=== PATIENT | female | born 1970 | race Caucasian/White ===

== ENCOUNTER 2020-07-05 08:18 | Emergency (ER) | payer OTHER, SELFPAY ==
[2020-07-05 08:50] VITALS: PULSE 91; RESP 18; TEMP 36.9; O2SAT 97; BMI 40.1
--- NOTE | 2020-07-05 08:58 | XR_ITS ---
EXAMINATION: XR CHEST CLINICAL INFORMATION: Chest pain COMPARISON: Previous chest x-ray June 2011 TECHNIQUE: 2 views of the chest were obtained. FINDINGS: The cardiac and mediastinal contours are normal. The lung volumes are low. The lungs are clear. There is no pleural effusion or pneumothorax. There are degenerative changes of the spine. IMPRESSION: Low lung volumes. No evidence for acute disease in the chest.
--- NOTE | 2020-07-05 08:58 | ECG_ITS ---
Test Reason : CP Blood Pressure : / mmHG Vent. Rate : 103 BPM Atrial Rate : 103 BPM P-R Int : 156 ms QRS Dur : 074 ms QT Int : 344 ms P-R-T Axes : 043 016 049 degrees QTc Int : 450 ms Sinus tachycardia Possible Left atrial enlargement Otherwise normal ECG No previous ECGs available Referred By: Cris Jain Electronically Signed By:CHEY PRO MD
--- NOTE | 2020-07-05 09:33 | ED.CHESTPAIN ---
HPI - Chest Pain General Chief Complaint: Chest Pain Stated Complaint: CHEST PAIN Time Seen by Provider: 07/05/20 08:52 Source: patient Mode of arrival: ambulatory History of Present Illness HPI narrative: 49-year-old female with a past medical history of asthma c/o substernal chest pain since 5:00 a.m. yesterday morning. reports pain constant, worse with lying flat/deep breathing. Reports mild associated SOB. Denies fever, cough, chills, LE edema, history of clots, calf pain, sick contacts MD complaint: chest pain Related Data Home Medications Medication Instructions Recorded Confirmed Symbicort 07/05/20 Trulicity 07/05/20 Zyrtec 07/05/20 atorvastatin 07/05/20 hydrochlorothiazide 07/05/20 metformin 07/05/20 metoprolol tartrate 07/05/20 metoprolol tartrate 07/05/20 montelukast 07/05/20 valsartan 07/05/20 Allergies Allergy/AdvReac Type Severity Reaction Status Date / Time No Known Allergies Allergy Mild NONE Unverified 06/14/20 16:47 Review of Systems Review of Systems: Constitutional: No Weight loss, No Fever, No Chills, No Night Sweats, No Fatigue, No Cardiovascular: + Chest Pain, No SOB, No Dyspnea on Exertion, No Orthopnea, No Edema, No Palpitations Respiratory: No Cough, No Sputum, No Wheezing Gastrointestinal: No Nausea, No Vomiting, No Diarrhea, No Constipation, No abdominal Pain Genitourinary: No Dysuria, No Urinary Frequency, No Hematuria, Skin: No Skin Lesions, No rash Yes all other systems are reviewed and are negative Neurologic: Denies Sensory deficit (Neuro) [facility] Past Medical History Attestation statement: The following information was validated with the patient. Source: unable to obtain Medical History (Updated 07/05/20 @ 11:03 by JESSICA Hector) Asthma Diabetes Eroded bladder suspension mesh Heart palpitations Varicose vein of leg Social History Social History Smoked in Last 30 Days: No Use of substances other than those prescribed or required for medical reasons: No Advance Directives: No Advance Directives Information Provided: No Physical Exam Vital Signs and I&O and Narrative: Vital Signs and I&O: Vital Signs Temp 98.5 F 07/05/20 08:50 Pulse 91 07/05/20 08:50 Resp 18 07/05/20 08:50 Pulse Ox 97 07/05/20 08:50 Intake & Output 07/04/20 07/05/20 07/05/20 18:59 06:59 18:59 Weight 102.965 kg Body Mass Index 40.1 Const: General: cooperative and healthy appearing Orientation/consciousness: patient oriented x3 Limitations: no limitations HENMT: Head: Yes normal to inspection Ears: hearing grossly normal bilaterally General nose exam: Normal external nose present Face and sinus: Yes normal facial exam Eyes: General: appearance normal, both eyes and all related structures EOM: EOMs intact bilaterally Neck: Neck: Yes normal visual inspection Chest: Chest palpation & inspection: normal inspection of the chest and tenderness ( reproducing subjective complaint. No crepitus) sternum Resp: Effort & Inspection: normal respiratory effort and no stridor Auscultation: clear to auscultation bilaterally, no crackles, no rales, no rhonchi and no wheezes Cardio: Rate: regular rate Heart sounds: S1 normal heart sound present and S2 normal heart sound present Peripheral pulses: Peripheral pulses 2+ throughout GI: Inspection: Yes normal to inspection Palpation (GI): Soft to palpation, nontender, no guarding and not rigid Skin: Wounds: no wounds Neuro: General: patient oriented x3 Gait exam (Neuro): Normal gait present Sensory Exam: No Sensory deficit (Neuro) Extrem: Other: no calf tenderness General: Yes normal to inspection Right upper extremity: no edema Course Course Course Narrative: -1053-- labs unremarkable, D-dimer negative, troponin negative CXR with low lung volumes, no acute disease MDM - Chest Pain MDM Narrative Medical decision making narrative: 49-year-old female with a past medical history of asthma c/o substernal chest pain since 5:00 a.m. yesterday morning. reports pain constant, worse with lying flat/deep breathing. On exam VSS, NAD/ well-appearing. Lungs CTA, pain reproducible on palpation of chest wall. Concern for MSK pain vs ACS vs PE vs pneumonia. Low concern for dissection, myocarditis, CHF, or asthma exacerbation Plan: EKG, labs, CXR, reassess Medical Records Data Attestation: I reviewed the patient's medical records. Lab Data Attestation: I reviewed the patient's lab results. Result diagrams: 07/05/20 09:34 07/05/20 09:34 Labs: Lab Results 07/05/20 07/05/20 07/05/20 Range/Units 09:34 09:34 09:34 WBC 7.0 (4.8-10.8) X10*3/uL RBC 4.92 (4.20-5.50) X10*6/uL Hgb 14.2 (12.0-16.0) g/dl Hct 43.0 (37-47) % MCV 87.4 (80-98) fL MCH 28.9 (27.0-33.0) pg MCHC 33.0 (31.0-35.0) g/dl RDW 13.1 (11.0-16.0) % Plt Count 219 (160-400) X10*3/uL MPV 12.3 (9.4-12.3) fL Immature Gran % (Auto) 0.4 (0.0-0.4) % Neut % (Auto) 66.1 (45-73) % Lymph % (Auto) 25.5 (20-40) % [place] % (Auto) 6.5 (2-11) % Eos % (Auto) 1.1 (0-4) % Baso % (Auto) 0.4 (0-2) % Lymph # (Auto) 1.8 (1.2-4.9) X10*3/uL [place] # (Auto) 0.5 (0.1-1.2) X10*3/uL Eos # (Auto) 0.1 (0.0-0.4) X10*3/uL Baso # (Auto) 0.0 (0.0-0.2) X10*3/uL Abs Immat Gran (auto) 0.03 (0.00-0.03) X10*3/uL Absolute Neuts (auto) 4.6 (2.0-8.3) X10*3/uL Absolute Nucleated RBC 0.000 (0.0-0.012) X10*3/uL Nucleated RBC % (auto) 0.0 (0.0-0.2) /100WBC D-Dimer < 200 NG/ML Sodium 137 (135-145) mmol/L Potassium 3.5 (3.3-5.1) mmol/l Chloride 99 (96-108) mmol/L Carbon Dioxide 27 (22-29) mmol/L Anion Gap 15 (12-20) BUN 14 (9-16) mg/dL Creatinine 0.70 (0.5-1.4) mg/dL Estim Creat Clear Calc 112.6 Estimated GFR > 60 Random Glucose 250 H (60-115) mg/dL Calcium 9.0 (8.4-10.2) mg/dL Total Bilirubin 0.3 (0.0-1.0) mg/dL Direct Bilirubin < 0.2 (0.0-0.5) mg/dL AST 21 (5-31) U/L ALT 39 H (0-31) U/L Alkaline Phosphatase 73 (39-117) U/L Troponin I High Sens (<3.5-17.0) ng/L B-Natriuretic Peptide (<100) pg/mL Total Protein 6.9 (6.5-8.0) g/dL Albumin 4.0 (3.5-5.0) g/dL Lipase 53 (8-78) U/L 07/05/20 Range/Units 09:34 WBC (4.8-10.8) X10*3/uL RBC (4.20-5.50) X10*6/uL Hgb (12.0-16.0) g/dl Hct (37-47) % MCV (80-98) fL MCH (27.0-33.0) pg MCHC (31.0-35.0) g/dl RDW (11.0-16.0) % Plt Count (160-400) X10*3/uL MPV (9.4-12.3) fL Immature Gran % (Auto) (0.0-0.4) % Neut % (Auto) (45-73) % Lymph % (Auto) (20-40) % [place] % (Auto) (2-11) % Eos % (Auto) (0-4) % Baso % (Auto) (0-2) % Lymph # (Auto) (1.2-4.9) X10*3/uL [place] # (Auto) (0.1-1.2) X10*3/uL Eos # (Auto) (0.0-0.4) X10*3/uL Baso # (Auto) (0.0-0.2) X10*3/uL Abs Immat Gran (auto) (0.00-0.03) X10*3/uL Absolute Neuts (auto) (2.0-8.3) X10*3/uL Absolute Nucleated RBC (0.0-0.012) X10*3/uL Nucleated RBC % (auto) (0.0-0.2) /100WBC D-Dimer NG/ML Sodium (135-145) mmol/L Potassium (3.3-5.1) mmol/l Chloride (96-108) mmol/L Carbon Dioxide (22-29) mmol/L Anion Gap (12-20) BUN (9-16) mg/dL Creatinine (0.5-1.4) mg/dL Estim Creat Clear Calc Estimated GFR Random Glucose (60-115) mg/dL Calcium (8.4-10.2) mg/dL Total Bilirubin (0.0-1.0) mg/dL Direct Bilirubin (0.0-0.5) mg/dL AST (5-31) U/L ALT (0-31) U/L Alkaline Phosphatase (39-117) U/L Troponin I High Sens < 3.5 (<3.5-17.0) ng/L B-Natriuretic Peptide 13 (<100) pg/mL Total Protein (6.5-8.0) g/dL Albumin (3.5-5.0) g/dL Lipase (8-78) U/L ECG Data ECG #1: Attestation: I personally reviewed and interpreted this ECG as follows: ECG interpretation date: 07/05/20 Interpretation: sinus tachycardia. Rate 103. No ST changes. Scores Additional Scores PERC Score: Score: =1 Discharge Plan Discharge Clinical Impression: Costalchondritis, Atypical chest pain Patient Disposition: Home, Self-Care Instructions: Costochondritis (ED), Chest Wall Pain (ED) Additional Instructions: your blood work and chest x-ray were unremarkable today in the ED Take Tylenol Motrin at home for the pain You need to call your primary care doctor to set up follow-up You should also establish care with a fisheries technician for further outpatient workup If pain persists and or worsens, you have constant worsening chest pain, shortness of breath, fever, chills, productive cough, or worsening swelling in her legs return to the ED Prescriptions: No Action Symbicort RF: 0 Trulicity RF: 0 Zyrtec RF: 0 atorvastatin RF: 0 hydrochlorothiazide RF: 0 metformin RF: 0 metoprolol tartrate RF: 0 metoprolol tartrate RF: 0 montelukast RF: 0 valsartan RF: 0 Referrals: Isreal Acuña MD [Primary Care Provider] - 2 days Lincoln Grullon MD [Physician] - 3 days
[2020-07-05 10:09] LABS: MANUAL DIFF FLAG NO
[2020-07-05 10:13] LABS: Basophils Percent Auto 0.4 % (0-2); Eosinophils Absolute Auto 0.1 X10*3/uL (0.0-0.4); Eosinophils Percent Auto 1.1 % (0-4); Hemoglobin 14.2 g/dl (12.0-16.0); Imm Gran Abs Auto 0.03 X10*3/uL (0.00-0.03); Imm Gran Pct Auto 0.4 % (0.0-0.4); Lymphocytes Absolute Auto 1.8 X10*3/uL (1.2-4.9); Lymphocytes Percent Auto 25.5 % (20-40); Mean Corpuscular Hemoglobin 28.9 pg (27.0-33.0); Mean Corpuscular Volume 87.4 fL (80-98); Mean Platelet Volume 12.3 fL (9.4-12.3); Monocytes Absolute Auto 0.5 X10*3/uL (0.1-1.2); Monocytes Percent Auto 6.5 % (2-11); Neutrophils Absolute Auto 4.6 X10*3/uL (2.0-8.3); Neutrophils Percent Auto 66.1 % (45-73); Platelet Count 219 X10*3/uL (160-400); Red Blood Count 4.92 X10*6/uL (4.20-5.50); Red Cell Distribution Width 13.1 % (11.0-16.0)
[2020-07-05 10:37] LABS: Alanine Aminotransferase 39 U/L (0-31); Alkaline Phosphatase 73 U/L (39-117); Anion Gap 15 (12-20); Aspartate Amino Transferase 21 U/L (5-31); Bilirubin Direct < 0.2 mg/dL (0.0-0.5); Bilirubin Total 0.3 mg/dL (0.0-1.0); Blood Urea Nitrogen 14 mg/dL (9-16); Carbon Dioxide 27 mmol/L (22-29); Chloride 99 mmol/L (96-108); Creatinine Clr Calc Pharmacy 112.6; Estimated Glomerular Filt Rate > 60; Glucose Random 250 mg/dL (60-115); Lipase 53 U/L (8-78); Potassium 3.5 mmol/l (3.3-5.1); Sodium 137 mmol/L (135-145); Total Protein 6.9 g/dL (6.5-8.0)
[2020-07-05 10:43] LABS: D Dimer < 200 NG/ML
[2020-07-05 10:44] LABS: B Type Natriuretic Peptide 13 pg/mL (<100); Troponin-I High Sensitivity < 3.5 ng/L (<3.5-17.0)
[2020-07-05] MEDS: Ketorolac Tromethamine 15 MG/ML VIAL IV (11:01)
[2020-07-05 11:03] VITALS: BP 134/77; PULSE 80; RESP 20; O2SAT 95
[2020-07-05] MEDS: Albuterol/Iprat 2.5/0.5MG 3 ML AMPUL.NEB INHALE (11:34)
== END 2020-07-05 11:55 | disposition home or self-care (01) ==
PROVIDERS: Physician Assistant; Emergency Provider Internal Medicine; PCP Family Medicine
DX: M94.0 Chondrocostal junction syndrome [Tietze] (principal); R07.89 Other chest pain; E11.9 Type 2 diabetes mellitus without complications; J45.909 Unspecified asthma, uncomplicated; Z79.899 Other long term (current) drug therapy; Z79.4 Long term (current) use of insulin
CPT/HCPCS: 36415; 71046; 80048; 80076; 83690; 83880; 84484; 85025; 85379; 93005; 96374; 99284; J1885

== ENCOUNTER 2020-08-01 10:44 | Outpatient (REF) | payer OTHER, SELFPAY ==
[2020-08-01 14:27] LABS: Creatinine Urine 62.62 mg/dL; Microalbum/Creatinine Ratio Ur 12.7 ug/mg cr
== END 2020-08-01 10:45 | disposition home or self-care (01) ==
LOC: HO.WFDLNP 10:44
PROVIDERS: Visit Provider Family Medicine
DX: R03.0 Elevated blood-pressure reading, without diagnosis of hypertension (principal)
CPT/HCPCS: 82043

== ENCOUNTER 2020-08-28 09:36 | Outpatient (REF) | payer OTHER, SELFPAY ==
--- NOTE | 2020-08-28 | MM_ITS ---
EXAMINATION: MM SCREENING DIGITAL BREAST TOMOSYNTHESIS, BILATERAL CLINICAL INFORMATION: Screening. Asymptomatic. The lifetime risk of breast cancer based on the Tyrer-Cuzick Model is 11%. COMPARISON: Mammography: 08/18/2019, 02/24/2018, 12/26/2016, 10/12/2015 TECHNIQUE: Digital breast tomosynthesis is performed in both the craniocaudal and mediolateral oblique views along with computer-aided detection (CAD). Synthesized 2D images are generated from the tomosynthesis. FINDINGS: There are scattered areas of fibroglandular density (ACR BI-RADS breast composition Category b). Parenchymal pattern is similar to prior exams. The left breast shows no interval mass or architectural abnormality. Neither breast shows abnormal calcifications. The axilla and skin contours are unremarkable. The right breast has new smooth circumscribed nodule 6:00-7:00 position 6 cm from nipple measuring approximately 6 x 5 x 4 mm. This may represent a cyst. Patient will be recalled for targeted ultrasound. MM/MM tomosynthesis screening BI IMPRESSION: 1. Right: New smooth circumscribed nodule 6:00-7:00 right breast under 1 cm. 2. Left: No mammographic evidence of malignancy. ASSESSMENT: BI-RADS 0: Incomplete - Need Additional Imaging Evaluation RECOMMENDATION: 1. Targeted ultrasound right breast. 2. Radiology department staff will contact the patient for additional imaging. This patient's information was entered into a reminder system with a target due date for their next mammogram.
== END 2020-08-28 09:37 | disposition home or self-care (01) ==
LOC: HO.MAMMO 09:36
PROVIDERS: PCP Family Medicine; Visit Provider Family Medicine
DX: Z12.31 Encounter for screening mammogram for malignant neoplasm of breast (principal)
CPT/HCPCS: 77063; 77067

== ENCOUNTER → 2020-08-29 07:41 | Outpatient (BNVA) | payer OTHER, SELFPAY | PROVIDERS: PCP Family Medicine; Referring Provider Family Medicine; Visit Provider Internal Medicine Endocrinology, Diabetes & Metabolism | DX: E11.65 Type 2 diabetes mellitus with hyperglycemia (principal); E78.00 Pure hypercholesterolemia, unspecified; I10 Essential (primary) hypertension; E66.01 Morbid (severe) obesity due to excess calories; Z79.899 Other long term (current) drug therapy | CPT/HCPCS: 82947 ==

== ENCOUNTER 2020-08-29 08:54 | Outpatient (REF) | payer OTHER, SELFPAY ==
[2020-08-29 11:30] LABS: Alanine Aminotransferase 49 U/L (0-31); Albumin Level 4.1 g/dL (3.5-5.0); Alkaline Phosphatase 73 U/L (39-117); Anion Gap 16 (12-20); Aspartate Amino Transferase 30 U/L (5-31); Bilirubin Total 0.4 mg/dL (0.0-1.0); Blood Urea Nitrogen 17 mg/dL (9-16); Calcium 9.3 mg/dL (8.4-10.2); Carbon Dioxide 27 mmol/L (22-29); Chloride 100 mmol/L (96-108); Cholesterol 162 mg/dL; Estimated Glomerular Filt Rate > 60; Glucose Fasting 186 mg/dL (60-99); HDL Cholesterol 38 mg/dL; LDL Cholesterol Calculated 90 mg/dl; Potassium 4.3 mmol/l (3.3-5.1); Sodium 139 mmol/L (135-145); Total Protein 7.3 g/dL (6.5-8.0); Triglycerides 170 mg/dL
[2020-08-29 11:39] LABS: Free T4 (Free Thyroxine) 0.85 ng/dL (0.71-1.85); Thyroid Stimulating Hormone 0.84 uIU/mL (0.32-4.0); Vitamin D 25-OH Total 36.6 ng/mL (>30)
[2020-08-29 11:43] LABS: Vitamin B12 535 pg/mL (200-900)
[2020-08-30 18:57] LABS: LDL Cholesterol Direct 101 mg/dL (<100)
== END 2020-08-29 08:55 | disposition home or self-care (01) ==
LOC: HO.10HDL 08:54
PROVIDERS: PCP Family Medicine; Visit Provider Internal Medicine Endocrinology, Diabetes & Metabolism
DX: Z00.00 Encounter for general adult medical examination without abnormal findings (principal); E11.65 Type 2 diabetes mellitus with hyperglycemia
CPT/HCPCS: 80053; 80061; 82306; 82607; 83721; 84439; 84443

== ENCOUNTER 2020-09-04 12:00 | Outpatient (REF) | payer OTHER, SELFPAY ==
--- NOTE | 2020-09-04 12:05 | US_ITS ---
EXAMINATION: US DIAGNOSTIC ULTRASOUND BREAST, RIGHT CLINICAL INFORMATION: Density right breast lower outer quadrant. COMPARISON: Mammography of 08/28/2020 and studies dating back to 12/28/2012. TECHNIQUE: Ultrasound of the breast is performed with real-time schuster scale imaging and color Doppler. FINDINGS: At approximately the 8 o'clock position 3 cm from nipple there is a well-circumscribed hypoechoic lesion with increased through sound transmission and no internal vascularity which is wider than it is tall representing a cyst. There is a thin septation within it. This measures approximately 5 x 4 x 9 mm in size. There is no solid mass, architectural abnormality, duct ectasia, or edema in the soft tissue planes. This corresponds in size and location to the mammographic finding. Results are discussed with the patient at time of visit. US/US breast RT limited IMPRESSION: Radiographic abnormality corresponds to a minimally complex cyst. ASSESSMENT: BI-RADS 2: Benign RECOMMENDATION: Routine annual mammography screening due in 12 months. This patient's information was entered into a reminder system with a target due date for their next mammogram.
== END 2020-09-04 12:01 | disposition home or self-care (01) ==
LOC: HO.MAMMO 12:00
PROVIDERS: PCP Family Medicine; Visit Provider Family Medicine
DX: N63.13 Unspecified lump in the right breast, lower outer quadrant (principal)
CPT/HCPCS: 76642

== ENCOUNTER 2020-11-10 09:57 | Outpatient (REF) | payer OTHER, SELFPAY ==
--- NOTE | ~2020-11-10 | XR_ITS ---
EXAMINATION: XR KNEE, LEFT CLINICAL INFORMATION: Left knee pain COMPARISON: April 17, 2014 TECHNIQUE: AP and lateral views of the left knee. FINDINGS: There is no evidence of acute fracture or dislocation of the left knee. No left knee effusion is seen. Left knee joint spaces are maintained. There is mild spurring undersurface of the patella. XR/XR knee LT 2V IMPRESSION: No acute fracture or effusion of the left knee. Mild patellofemoral degenerative spurring.
== END 2020-11-10 09:58 | disposition home or self-care (01) ==
LOC: HO.XRAY 09:57
PROVIDERS: PCP Family Medicine; Visit Provider Nurse Practitioner Adult Health
DX: M25.562 Pain in left knee (principal)
CPT/HCPCS: 73560

== ENCOUNTER → 2021-03-11 08:55 | Outpatient (BNVA) | payer OTHER, SELFPAY | PROVIDERS: PCP Family Medicine; Visit Provider Internal Medicine Endocrinology, Diabetes & Metabolism ==

== ENCOUNTER 2022-01-10 12:50 | Outpatient (REF) | payer OTHER, SELFPAY ==
--- NOTE | ~2022-01-10 | MM_ITS ---
EXAMINATION: MM SCREENING DIGITAL BREAST TOMOSYNTHESIS, BILATERAL CLINICAL INFORMATION: Screening. Asymptomatic. The lifetime risk of breast cancer based on the Tyrer-Cuzick Model is 11%. COMPARISON: Mammography: 08/28/2020, 08/18/2019, 02/24/2018 TECHNIQUE: Digital breast tomosynthesis is performed in both the craniocaudal and mediolateral oblique views along with computer-aided detection (CAD). Synthesized 2D images are generated from the tomosynthesis. FINDINGS: There are scattered areas of fibroglandular density (ACR BI-RADS breast composition Category b). There are no significant masses, abnormal calcifications, or other abnormalities. There is no developing density or interval architectural abnormality. Parenchymal asymmetry posterior upper outer left breast is stable. The axilla are unremarkable. No significant changes. MM/MM tomosynthesis screening BI IMPRESSION: No mammographic evidence of malignancy. ASSESSMENT: BI-RADS 2: Benign RECOMMENDATION: Routine annual mammography screening. This patient's information was entered into a reminder system with a target due date for their next mammogram.
== END 2022-01-10 12:51 | disposition home or self-care (01) ==
LOC: HO.MAMMO 12:50
PROVIDERS: PCP Family Medicine; Visit Provider Family Medicine
DX: Z12.31 Encounter for screening mammogram for malignant neoplasm of breast (principal)
CPT/HCPCS: 77063; 77067

== ENCOUNTER → 2022-02-13 08:18 | Outpatient (BNVA) | payer OTHER, SELFPAY | PROVIDERS: PCP Family Medicine; Visit Provider Nurse Practitioner Gerontology | DX: E11.65 Type 2 diabetes mellitus with hyperglycemia (principal) ==

== ENCOUNTER 2022-03-06 10:38 | Outpatient (REF) | payer OTHER, SELFPAY ==
[2022-03-06 13:49] LABS: Alanine Aminotransferase 88 U/L (0-31); Albumin Level 4.3 g/dL (3.5-5.0); Alkaline Phosphatase 77 U/L (39-117); Anion Gap 14 (12-20); Aspartate Amino Transferase 47 U/L (5-31); Bilirubin Total 0.4 mg/dL (0.0-1.0); Blood Urea Nitrogen 17 mg/dL (9-16); Calcium 9.6 mg/dL (8.4-10.2); Carbon Dioxide 28 mmol/L (22-29); Chloride 101 mmol/L (96-108); Cholesterol 192 mg/dL; Estimated Glomerular Filt Rate > 60; Glucose Fasting 103 mg/dL (60-99); HDL Cholesterol 49 mg/dL; LDL Cholesterol Calculated 123 mg/dl; Sodium 139 mmol/L (135-145); Total Protein 7.5 g/dL (6.5-8.0); Triglycerides 101 mg/dL
[2022-03-06 13:52] LABS: Estimated Average Glucose 148 mg/dL; Hemoglobin A1c % 6.8 %
[2022-03-06 14:15] LABS: Creatinine Urine 67.12 mg/dL; Microalbum/Creatinine Ratio Ur 13.4 ug/mg cr
[2022-03-08 03:22] LABS: LDL Cholesterol Direct 133 mg/dL (<100)
== END 2022-03-06 10:39 | disposition home or self-care (01) ==
LOC: HO.WFDLDS 10:38
PROVIDERS: Visit Provider Nurse Practitioner Gerontology
DX: E11.65 Type 2 diabetes mellitus with hyperglycemia (principal)
CPT/HCPCS: 36415; 80053; 80061; 82043; 83036; 83721

== ENCOUNTER 2022-05-08 11:30 | Outpatient (REF) | payer OTHER, SELFPAY ==
[2022-05-08 14:10] LABS: Alanine Aminotransferase 143 U/L (0-31); Albumin Level 4.3 g/dL (3.5-5.0); Alkaline Phosphatase 79 U/L (39-117); Anion Gap 15 (12-20); Aspartate Amino Transferase 80 U/L (5-31); Bilirubin Total 0.3 mg/dL (0.0-1.0); Blood Urea Nitrogen 13 mg/dL (9-16); Calcium 9.6 mg/dL (8.4-10.2); Carbon Dioxide 28 mmol/L (22-29); Chloride 100 mmol/L (96-108); Estimated Glomerular Filt Rate > 60; Glucose Random 112 mg/dL (60-115); Potassium 3.8 mmol/L (3.3-5.1); Sodium 139 mmol/L (135-145); Total Protein 7.4 g/dL (6.5-8.0)
[2022-05-09 08:05] LABS: HBS Num1 0.66 mIU/mL (0-7.99); HBc Num1 0.11 S/CO (0.00-0.79); HBsAGNum1 0.18 S/CO (0.00-0.99); Hepatitis B Core Antibody Nonreactive (Nonreactive); Hepatitis B Surface Antigen Negative (Negative); ~HepC Num1 0.21 S/CO (0.00-0.79); ~Hepatitis B Surface Antibody NONREACTIVE (Nonreactive); ~Hepatitis C Antibody Nonreactive (Nonreactive)
== END 2022-05-08 11:31 | disposition home or self-care (01) ==
LOC: HO.WFDLDS 11:30
PROVIDERS: Visit Provider Family Medicine
DX: Z11.3 Encounter for screening for infections with a predominantly sexual mode of transmission (principal); R74.01 Elevation of levels of liver transaminase levels
CPT/HCPCS: 36415; 80053; 86704; 86706; 86803; 87340

== ENCOUNTER 2022-05-21 14:11 | Outpatient (REF) | payer OTHER, SELFPAY ==
--- NOTE | ~2022-05-21 | US_ITS ---
EXAMINATION: US THYROID CLINICAL INFORMATION: Nontoxic goiter, unspecified. COMPARISON: None TECHNIQUE: Linear transducer grayscale and color Doppler examination with attention to the region of the thyroid. FINDINGS: SIZE: Measurements of the thyroid lobes and nodules are given in sagittal, anteroposterior and transverse dimensions respectively. Right Thyroid Lobe: 4.1 x 1.6 x 1.7 cm, volume 5.8 mL. Parenchyma: The gland echotexture is homogeneous. Thyroid vascularity is normal. Left Thyroid Lobe: 4.0 x 1.0 x 1.1 cm, volume 2.2 mL. Parenchyma: The gland echotexture is homogeneous. Thyroid vascularity is normal. Isthmus: 0.1 cm in maximum AP dimension. There are small cysts in the right lobe, largest measuring 4 mm. No focal thyroid nodule is seen. NODES: No lymphadenopathy is seen in the tissue surrounding the thyroid gland. US/US thyroid IMPRESSION: Normal sized thyroid gland. Small cysts in the right lobe. No suspicious nodule.
== END 2022-05-21 14:12 | disposition home or self-care (01) ==
LOC: HO.US 14:11
PROVIDERS: Visit Provider Family Medicine
DX: E04.9 Nontoxic goiter, unspecified (principal)
CPT/HCPCS: 76536

== ENCOUNTER 2022-06-19 10:34 | Outpatient (REF) | payer OTHER, SELFPAY ==
[2022-06-19 14:47] LABS: Gamma Glutamyl Transpeptidase 66 U/L (7-33); Lipase 38 U/L (8-78)
[2022-06-19 15:09] LABS: Ferritin 53 ng/mL (10-250)
[2022-06-20 07:05] LABS: HIV AB/AG Nonreactive (Nonreactive); HIV Num 1 0.07 S/CO (0.00-0.99)
[2022-06-21 11:36] LABS: Alpha 1 Anti-trypsin 151 mg/dL (83-199)
[2022-06-23 13:06] LABS: Smooth Muscle Antibody <20 U (<20)
[2022-06-23 13:53] LABS: Alpha Fetoprotein 2.1 ng/mL
[2022-06-23 14:06] LABS: Anti Nuclear Antibody Screen NEGATIVE (NEGATIVE)
[2022-06-24 13:07] LABS: Mitochondrial Antibodies NEGATIVE (NEGATIVE)
[2022-06-26 15:12] LABS: Transglutaminase Ab IgG <1.0 U/mL; Transglutaminase IgA <1.0 U/mL
== END 2022-06-19 10:35 | disposition home or self-care (01) ==
LOC: HO.WFDLDS 10:34
PROVIDERS: Visit Provider Nurse Practitioner Family
DX: Z11.4 Encounter for screening for human immunodeficiency virus [HIV] (principal); R10.9 Unspecified abdominal pain; R74.8 Abnormal levels of other serum enzymes; R74.01 Elevation of levels of liver transaminase levels; R79.89 Other specified abnormal findings of blood chemistry
CPT/HCPCS: 36415; 82103; 82105; 82728; 82977; 83690; 86015; 86038; 86039; 86255; 86256; 86364; 87389

== ENCOUNTER 2022-06-26 14:54 | Outpatient (REF) | payer OTHER, SELFPAY ==
[2022-06-29 14:39] LABS: H Pylori Breath Test Negative (Negative)
== END 2022-06-26 14:55 | disposition home or self-care (01) ==
LOC: HO.LNP 14:54
PROVIDERS: Visit Provider Nurse Practitioner Family
DX: K21.9 Gastro-esophageal reflux disease without esophagitis (principal)
CPT/HCPCS: 83013

== ENCOUNTER 2022-07-09 08:44 | Outpatient (REF) | payer OTHER, SELFPAY ==
--- NOTE | ~2022-07-09 | US_ITS ---
EXAMINATION: US COMPLETE ABDOMEN WITH LIVER ELASTOGRAPHY CLINICAL INFORMATION: Elevated liver function tests COMPARISON: None. TECHNIQUE: Real-time imaging of the abdominal viscera. Noninvasive ultrasound liver fibrosis assessment is performed using Stephan ElastPQ point quantification shear wave elastography (2D-SWE) with a C5-2 MHz transducer. Multiple elastography samples are obtained. FINDINGS: PANCREAS: Normal. ABDOMINAL AORTA: The proximal, middle, and distal aortic segments are normal in caliber. INFERIOR VENA CAVA: Visualized portions are normal. LIVER: Liver echotexture is previous probably representing fatty infiltration. There is a hypoechoic area adjacent to the gallbladder, a characteristic location of focal fatty sparing. No other focal lesion. Liver is slightly enlarged. The liver contour is normal. No biliary duct dilatation.. The right lobe measures 18.5 cm in length. The left lobe measures 12 cm in length. Portal flow is normal/hepatopedal Shear wave liver elastography median stiffness is 1.8 m/s (reference: normal median stiffness is 1.3 m/s or less). IQR/median stiffness to assess sampling precision is 0.12 (reference: good quality data set is IQR/median stiffness of 0.15 or less). GALLBLADDER: Normal. The gallbladder is physiologically distended without evidence of stones, sludge, polyps, wall thickening or pericholecystic fluid. COMMON BILE DUCT: Normal in caliber measuring 0.4 cm in diameter. RIGHT KIDNEY: Normal. No hydronephrosis. No renal calculi or focal parenchymal lesions. The kidney measures 11 cm in maximum dimension. LEFT KIDNEY: Normal. No hydronephrosis. No renal calculi or focal parenchymal lesions. The kidney measures 10.7 cm in maximum dimension. SPLEEN: Normal. The spleen measures 9.4 cm in maximum dimension. FREE FLUID: None. US/US abdomen comp w elastography IMPRESSION: 1. Impression: Slightly enlarged echogenic liver suggestive of fatty infiltration. 2. Liver elastography: Adequate liver sampling. Increased liver stiffness suggestive of compensated advanced chronic liver disease but need further test for confirmation. REFERENCE: Society of Radiologists in Ultrasound Liver Stiffness Thresholds (2020): LIVER STIFFNESS THRESHOLDS: *Liver Stiffness equal or less than 1.3 m/s: High probability of being normal. *Liver Stiffness less than 1.7 m/s: In the absence of other known clinical signs, rules out compensated advanced chronic liver disease. *Liver Stiffness 1.7-2.1 m/s: Suggestive of compensated advanced chronic liver disease but need further test for confirmation. *Liver Stiffness over 2.1 m/s: Rules in compensated advanced chronic liver disease. *Liver Stiffness over 2.4 m/s: Suggestive of clinically significant portal hypertension. QUALITY OF DATA SET: *IQR/Median value equal or less than 0.15 implies a quality data set. *IQR/Median value over 0.15 implies a poor quality data set. SIGNIFICANT CHANGE FROM PRIOR EXAM: Significant change if liver stiffness measurement is 10% or greater from prior exam. OTHER CONSIDERATIONS: The stage of liver fibrosis may be overestimated in the setting of acute hepatitis, liver inflammation, elevated liver function tests, hepatic vascular congestion, obstructive cholestasis, non-fasting state, and infiltrative diseases such as amyloidosis and lymphoma. In some patients with NAFLD, the liver stiffness thresholds for compensated advanced chronic liver disease may be lower. In causes other than viral hepatitis and NAFLD, liver stiffness thresholds are not well established.
== END 2022-07-09 08:45 | disposition home or self-care (01) ==
LOC: HO.US 08:44
PROVIDERS: Visit Provider Nurse Practitioner Family
DX: R79.89 Other specified abnormal findings of blood chemistry (principal)
CPT/HCPCS: 76705; 76981

== ENCOUNTER 2022-08-13 10:04 | Outpatient (REF) | payer OTHER, SELFPAY | END 2022-08-13 10:05 | disposition home or self-care (01) | LOC: HO.SH 10:04 | PROVIDERS: Visit Provider Family Medicine | DX: Z01.118 Encounter for examination of ears and hearing with other abnormal findings (principal); H93.293 Other abnormal auditory perceptions, bilateral | CPT/HCPCS: 92557; 92567 ==

== ENCOUNTER 2022-08-15 14:11 | Outpatient (REF) | payer OTHER, SELFPAY ==
[2022-08-16 15:02] LABS: BV Int Neg Control Negative (Negative); BV Int Pos Control Positive (Positive)
[2022-08-27 04:57] LABS: HPV mRNA E6/E7 rflx Not Detected (Not Detected)
== END 2022-08-15 14:12 | disposition home or self-care (01) ==
LOC: HO.LNP 14:11
PROVIDERS: Advanced Practice Midwife; Visit Provider Advanced Practice Midwife
DX: Z01.419 Encounter for gynecological examination (general) (routine) without abnormal findings (principal); Z11.51 Encounter for screening for human papillomavirus (HPV)
CPT/HCPCS: 87480; 87510; 87624; 87660; 88142

== ENCOUNTER 2022-11-24 09:27 | Day surgery (SDC) | payer OTHER, SELFPAY ==
[2022-11-20 12:37] VITALS: BMI 38.9
[2022-11-24 10:11] VITALS: BP 138/76; PULSE 70; RESP 18; TEMP 37; O2SAT 97; BMI 40.5
[2022-11-24] MEDS: Lactated Ringers 1,000 ML 50 ML IVCONT (10:27)
[2022-11-24 10:34] LABS: Glucose, Whole Blood 143 mg/dL (60-115)
--- NOTE | 2022-11-24 11:01 | MHC.SHP ---
Pre-Procedural Eval Section A Date of Service: 11/24/22 The patient is an INPATIENT: No The History & Physical has been completed within 30 days and I have reviewed it.: No Section B Chief Complaint: Encounter for screening for malignant neoplasm of Details of Present Illness: GERD, colon cancer screening Relevant Family History (Specify if Yes): Yes Relevant Social History: None Present Medications: see Short Stay Collaborative assessment Medical History: Significant History (Asthma Diabetes Diabetes type 2, uncontrolled Eroded bladder suspension mesh Heart palpitations Morbid obesity Varicose vein of leg) History of Previous Operations: Relevant previous surgery/procedure and date(s) (History of bladder surgery) Allergies: Allergies Allergy/AdvReac Type Severity Reaction Status Date / Time No Known Allergies Allergy Mild NONE Verified 11/20/22 12:27 Review of Systems Sugical H&P ROS: Negative: Constitution, Cardiovascular, Respiratory and Gastrointestinal Exam Surgical H&P Exam: Normal: Heart, Normal: Lungs, Normal: Extremities and Normal: Abdomen Plan Diagnosis/Plan: Unchanged I have reviewed the history and physical and performed a pertinent physical examination on my patient. No changes have occurred unless specified. Time Spent With Patient Time: Total time managing care of this patient today ____ minutes.
--- NOTE | 2022-11-24 11:07 | P.OP_ITS ---
Operative Note Operative Note Date of Service: 11/24/22 Narrative: Pre-op diagnosis: Colon cancer screening, GERD, epigastric pain Post-op diagnosis:?other (Gastritis, Gastric polyps, gastric antral nodule, GERD, colon polyps, diverticulosis, hemorrhoids) Surgeon: William Lerma MD Anesthesia:?MAC FLEXIBLE TRANSORAL UPPER GASTROINTESTINAL ENDOSCOPY WITH BIOPSIES AND COLONOSCOPY TILL CECUM WITH BIOPSIES UPPER ENDOSCOPY Consent: Indications for the procedure and potential complications of bleeding, perforation, reaction to medications and missed diagnosis were discussed with the patient and informed consent was obtained. Instrument: Olympus GIF H 190 mid size upper endoscope Monitoring: Vital signs and clinical assessment, continuous EKG monitoring, Pulse oximetry, Carbon Dioxide monitoring and blood pressure monitoring were done throughout the procedure. Procedure: The patient was placed in the left lateral decubitis position and pre-procedure medications were administered and a bite block was placed. The endoscope was inserted into the mouth and advanced under direct vision to the third part of duodenum. A careful inspection was made as the upper endoscope was withdrawn including a retroflexed examination of the proximal stomach; Findings and interventions are described below. Findings: Larynx: Normal Esophagus: GE junction at 35 cms. No esophagitis or Cabral's. Stomach: Moderate diffuse gastric erythema with nodular appearing gastric mucosa in the gastric body.. Biopsies were obtained from the antrum and body. Multiple 3-5 mm benign appearing polyps in the gastric body - biopsied. A 7 - 8 mm benign appearing nodule in the antrum - biopsied. Grade 2 flap valve on retroflexed examination of the cardia. Duodenum: Normal bulb and descending duodenum Intervention: Biopsies as noted above COLONOSCOPY PROCEDURE NOTE Consent: Indications for the procedure and potential complications of bleeding, perforation, reaction to medications and missed diagnosis were discussed with the patient and informed consent was obtained. Instrument: Olympus PCF H 190 L variable stiffness pediatric colonoscope Monitoring: Vital signs and clinical assessment, intermittent blood pressure monitoring, continuous EKG monitoring, Pulse oximetry and Carbon Dioxide monitoring were done throughout the procedure. Colon withdrawl time was 13 minutes. Procedure: The patient was placed in the left lateral decubitis position and pre-procedure medications were administered. After a digital rectal examination of the ano-rectum, the video colonoscope was inserted into the rectum and advanced through the colon to the ICV. Cecum was visualized across the ICV. The colonoscope was slowly withdrawn in a retrograde panoramic fashion and the colon mucosa was carefully examined including a retroflexed view of the rectum. Findings and interventions are described below. Procedure Difficulty: : LLQ pressure applied to intubate the cecum Findings: Terminal Ileum: Not evaluated Cecum: Normal Ascending Colon: Normal Transverse Colon: Normal Descending Colon: Normal Sigmoid Colon: A few 5 - 7 mm diminutive appearing polyps - one was biopsied. Moderate diverticulosis Rectum: A few 5 - 7 mm diminutive appearing polyps - one was biopsied. Ano-rectum: Moderate internal hemorrhoids Colon preparation: Good Impression and Post Procedure Diagnosis: Endoscopy Findings: STOMACH: Moderate diffuse gastric erythema with nodular appearing gastric mucosa in the gastric body.. Biopsies were obtained from the antrum and body. Multiple 3-5 mm benign appearing polyps in the gastric body - biopsied. A 7 - 8 mm benign appearing nodule in the antrum - biopsied. Colonoscopy Findings: A few 5 - 7 mm diminutive appearing polyps in the recto-sigmoid - two were biopsied. Moderate diverticulosis seen in the sigmoid colon Moderate hemorrhoids on retroflexed exam. Plan: Await pathology results Patient has an appointment on 12/09/22 in the GI Clinic with Shoshana Earl FNP- [place] . Repeat Colonoscopy interval based on path results - in 5 years if polyps are adenomatous and 10 years if polyps are hyperplastic. Above findings were reviewed with the patient and gastric polyps, colon polyps and diverticulosis handouts were given in the discharge area
--- NOTE | 2022-11-24 11:07 | PM.OP ---
Brief Operative Note Date of Service: 11/24/22 Pre-op diagnosis: Colon cancer screening, GERD, epigastric pain Post-op diagnosis: other (Gastritis, Gastric polyps, gastric antral nodule, GERD, colon polyps, diverticulosis, hemorrhoids) Procedure: FLEXIBLE TRANSORAL UPPER GASTROINTESTINAL ENDOSCOPY WITH BIOPSIES AND COLONOSCOPY TILL CECUM WITH BIOPSIES Surgeon: William Lerma MD Anesthesia: MAC Was an Analysis Or Research Safety Inspector used for this Procedure?: No Analysis Or Research Safety Inspector: Maria Guadalupe Duff Estimated blood loss (mL): 0 Pathology: other ( a. gastric antrum r/o h pylori b. gastric antrum nodule c. gastric body d. gastric polyp e. sigmoid polyp f. rectal polyp) Condition: stable Disposition: PACU
[2022-11-24 11:58] VITALS: BP 102/71; PULSE 75; RESP 20; TEMP 36.8; O2SAT 97
[2022-11-24 12:13] VITALS: BP 119/81; PULSE 74; RESP 16; TEMP 36.8; O2SAT 95
== END 2022-11-24 12:38 | disposition home or self-care (01) ==
PROVIDERS: PCP Family Medicine; Visit Provider Internal Medicine Gastroenterology
PROC: (CPT 45380; principal; 2022-11-24 10:30)
DX: Z12.11 Encounter for screening for malignant neoplasm of colon (principal); K63.5 Polyp of colon; K62.1 Rectal polyp; K57.30 Diverticulosis of large intestine without perforation or abscess without bleeding; K64.8 Other hemorrhoids; M79.7 Fibromyalgia; K21.9 Gastro-esophageal reflux disease without esophagitis; K29.50 Unspecified chronic gastritis without bleeding; K31.7 Polyp of stomach and duodenum; J45.909 Unspecified asthma, uncomplicated; E78.00 Pure hypercholesterolemia, unspecified; I83.90 Asymptomatic varicose veins of unspecified lower extremity; E11.9 Type 2 diabetes mellitus without complications; E66.01 Morbid (severe) obesity due to excess calories; Z68.38 Body mass index [BMI] 38.0-38.9, adult; R74.01 Elevation of levels of liver transaminase levels; R00.2 Palpitations; F32.A Depression, unspecified; Z79.51 Long term (current) use of inhaled steroids; Z79.84 Long term (current) use of oral hypoglycemic drugs; Z79.899 Other long term (current) drug therapy
CPT/HCPCS: 45380; 43239; 82947; 88305; 88342; J2250; J3010

== ENCOUNTER 2022-12-23 11:11 | Outpatient (REF) | payer OTHER, SELFPAY ==
[2022-12-23 16:00] LABS: Cholesterol 190 mg/dL; HDL Cholesterol 40 mg/dL; LDL Cholesterol Calculated 108 mg/dl; Lipase 40 U/L (8-78); Triglycerides 211 mg/dL
== END 2022-12-23 11:12 | disposition home or self-care (01) ==
LOC: HO.LAB 11:11
PROVIDERS: PCP Family Medicine; Referring Provider Family Medicine; Visit Provider Nurse Practitioner Family
DX: Z00.00 Encounter for general adult medical examination without abnormal findings (principal); I10 Essential (primary) hypertension; R74.01 Elevation of levels of liver transaminase levels; K21.9 Gastro-esophageal reflux disease without esophagitis; R10.12 Left upper quadrant pain
CPT/HCPCS: 36415; 80061; 83690

== ENCOUNTER 2023-01-07 09:17 | Outpatient (REF) | payer OTHER, SELFPAY ==
[2023-01-07 10:18] LABS: Estimated Average Glucose 180 mg/dL; Hemoglobin A1c % 7.9 %
[2023-01-07 10:54] LABS: Alanine Aminotransferase 90 U/L (0-31); Albumin Level 4.1 g/dL (3.5-5.0); Alkaline Phosphatase 78 U/L (39-117); Aspartate Amino Transferase 53 U/L (5-31); Bilirubin Direct 0.1 mg/dL (0.0-0.5); Bilirubin Total 0.4 mg/dL (0.0-1.0); Total Protein 6.9 g/dL (6.5-8.0)
[2023-01-14 15:28] LABS: FIB-ALT 73 U/L (6-29); FIB-Alpha-2-Macroglobulin 260 mg/dL (106-279); FIB-Apolipoprotein A1 150 mg/dL (101-198); FIB-GGT 61 U/L (3-70); FIB-Haptoglobin 161 mg/dL (43-212); FIB-Total Bilirubin 0.3 mg/dL (0.2-1.2); Liver Fibrosis Score 0.22; Liver Fibrosis Stage F0-F1; Nec Inflam Act Grade A1-A2; Nec Inflam Act Score 0.41
[2023-01-15 22:38] LABS: Pancreatic Elastase-1 >500 mcg/g
== END 2023-01-07 09:18 | disposition home or self-care (01) ==
LOC: HO.LAB 09:17
PROVIDERS: PCP Family Medicine; Visit Provider Nurse Practitioner Family
DX: E11.9 Type 2 diabetes mellitus without complications (principal); R74.8 Abnormal levels of other serum enzymes; R10.9 Unspecified abdominal pain
CPT/HCPCS: 80076; 81596; 82656; 83036

== ENCOUNTER 2023-06-26 09:24 | Outpatient (REF) | payer OTHER, SELFPAY | END 2023-06-26 09:25 | disposition home or self-care (01) | LOC: HO.MAMMO 09:24 | PROVIDERS: PCP Family Medicine; Visit Provider Family Medicine | DX: Z12.31 Encounter for screening mammogram for malignant neoplasm of breast (principal) | CPT/HCPCS: 77063; 77067 ==

== ENCOUNTER → 2023-06-26 09:45 | Outpatient (BNV) | payer OTHER, SELFPAY | PROVIDERS: PCP Family Medicine; Visit Provider Radiology Diagnostic Radiology | DX: Z12.31 Encounter for screening mammogram for malignant neoplasm of breast (principal) | CPT/HCPCS: 77063; 77067 ==

== ENCOUNTER 2023-06-26 10:31 | Outpatient (AMB) | payer OTHER, SELFPAY ==
--- NOTE | 2023-06-26 10:37 | A.OFFVIS_ITS ---
Intake Vital Signs 06/26/23 10:43 Height 5 ft 3 in Weight 215 lb BMI 38.1 BP 143/73 H Blood Pressure Location Lt brachial Position Sitting Pulse 78 Intake Visit Reasons: 6 month f/u labs Intake Note: Patient follow up for Elevated liver transaminase level. Patient cc: acid reflex on and off, denies any other GI issues. Roll Coverer Required: No Accompanied by: Self / Same As Patient Allergies No Known Allergies Allergy (Mild, Verified 06/26/23 10:37) NONE HPI 6 month f/u labs HPI Details LAST VISIT Elevated liver transaminase level Will repeat blood work. Patient was encouraged to lose weight. Change diet. Increase exercise GERD (gastroesophageal reflux disease) Discussed with patient avoiding dietary triggers in late night snacking. Staying upright for minimal 3 hours after meals discussed with patient. Will start patient on pantoprazole and see if she will have improvement in symptoms. Postprandial abdominal pain in left upper quadrant Patient reports postprandial abdominal pain and left upper quadrant. Will check lipase, pancreatic elastase. I will see patient in 6 months, sooner on as needed basis. Patient is agreeable to this plan and verbalizes understanding of instructions. She was given the opportunity to ask questions and all questions answered. ? TODAY'S VISIT: Patient is here today for follow-up and to discuss lab results. Patient says liver enzymes improved, however continue to be elevated. Patient denies any family history of liver cirrhosis. Patient reports that she is under lot of stress. Her in March. She is taking care of her mother who lives with her as well as working full-time. Patient reports that she had to start taking pantoprazole again as she was having epigastric burning. Patient denies any nausea or vomiting. Patient reports occasional dyspepsia without dysphagia or odynophagia. Patient reports that pantoprazole has been helpful. Patient also states that she got [id number] famotidine and has been using on as needed basis. Patient denies any nausea or vomiting. Reports that she is unable to go exercising but will try to lose weight. Her Trulicity was increased just recently and she is hoping that that will also help her lose weight [facility] Medical History Asthma Diabetes Diabetes type 2, uncontrolled Eroded bladder suspension mesh Fibromyalgia Heart palpitations Morbid obesity On beta karla at home Stress incontinence Varicose vein of leg Surgical History Hx of colonoscopy History of bladder surgery History of surgery Family History Father CAD (coronary artery disease) Myocardial infarction Hypercholesterolemia Diabetes mellitus HTN (hypertension) Mother Heart failure HTN (hypertension) Hypothyroidism Osteoporosis Social History Household Members: Spouse and Family Household Members Other:: daughter, mother Housing: House Alcohol intake: never Patient Tobacco Use Status: Never used Tobacco e-Cigarette/Vaping Use: Never Used Second Hand Smoke Exposure: No service: No Current occupational status: employed 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 [employer] Current occupational exposures/hazards: No Sexual orientation: Straight/Heterosexual Gender identity: Female Cognitive needs: No Hearing needs: No Vision needs: Yes Review of Systems Const Denies weight gain and Denies weight loss ENT Reports no additional complaints, Denies dysphagia and Denies odynophagia Card Reports no additional complaints Resp Reports no additional complaints GI Denies abdominal pain, Denies belching, Denies melena, Denies bloating, Denies change in bowel habits, Denies dysphagia, Denies excessive flatus, Denies dyspepsia, Denies heartburn, Denies diarrhea, Denies loose stools, Denies naus ea, Denies odynophagia and Denies vomiting Musc Reports no additional complaints Neuro Reports no additional complaints Psych Reports no additional complaints Endo Reports no additional complaints Physical Exam Vital Signs: Last Vital Signs Pulse 78 06/26/23 10:43 BP 143/73 H 06/26/23 10:43 BMI result Body Mass Index 38.1 Const General: healthy appearing, no acute distress and well developed Nutritional Appearance: obese Orientation/consciousness: patient oriented x3 HEENT Head: Yes normal to inspection, Yes normocephalic and Yes atraumatic Face and sinus: Yes normal facial exam Mouth: Normal oral and palatal mucosa present Throat: Yes posterior oropharynx normal, Yes tonsils normal and Yes uvula midline Eyes General: appearance normal, both eyes and all related structures Neck Neck: Yes normal visual inspection, Yes full ROM and Yes trachea midline Thyroid: Thyroid normal Resp Effort & Inspection: normal respiratory effort, able to speak in complete sentences, no tracheal deviation and symmetric chest movement Auscultation: clear to auscultation bilaterally Cardio Rate: regular rate Heart sounds: S1 normal heart sound present and S2 normal heart sound present GI Inspection: Yes normal to inspection, No distended and Yes obesity Palpation (GI): Soft to palpation, not firm, nontender and No hepatosplenomegaly present Auscultation: normal bowel sounds General: Yes no CVA tenderness Back/Spine/Pelvis Back: no CVA tenderness Skin General skin exam: elasticity normal, turgor normal and dry skin Neuro General: patient oriented x3 Psych Appearance: grossly normal Mental Status: mental status grossly normal Speech and movement: Normal speech and movement present Results Reviewed Results Reviewed: Laboratory Tests 01/07/23 01/07/23 07:34 09:31 AST 53 H ALT 90 H Alkaline Phosphatase 78 Liver Fibrosis ALT 73 H Liver Fibrosis Stage F0-F1 Stool Pancreat Elastase >500 Assessment & Plan Assessment & Plan (1) Elevated liver transaminase level: Code(s): R74.01 - Elevation of levels of liver transaminase levels Plan: Continue exercise and weight loss. Avoid food high in fat. Patient does not drink alcohol. Will repeat liver enzymes in 6 months (2) GERD (gastroesophageal reflux disease): Code(s): K21.9 - Gastro-esophageal reflux disease without esophagitis Qualifiers: Esophagitis presence: esophagitis presence not specified Qualified Code(s): K21.9 - Gastro-esophageal reflux disease without esophagitis Plan: Discussed with patient avoiding dietary triggers and late night snacking. Staying upright for minimal 3 hours after meals discussed with patient. Patient will continue on pantoprazole in the morning. Patient can take famotidine at bedtime on as needed basis. She will be seen in 6 months, sooner on as needed basis. Patient is agreeable to this plan and verbalizes understanding of instructions. She was given the opportunity to ask questions and all questions answered. Thank you for allowing me to participate in her care Orders: Orders Liver Panel 6 Months R74.01 - Elevation of levels of liver transaminase levels Medications: New 2 famotidine (Pepcid) 20 mg PO BEDTIME 30 tabs 3RF K21.9 - Gastro-esophageal reflux disease without esophagitis Refilled pantoprazole take one tablet half an hour before breakfast 40 mg PO DAILY 90 tabs 1RF K21.9 - Gastro-esophageal reflux disease without esophagitis Coding Level of Care Code Est Pt Level 3 (40205) Diagnoses Elevated liver transaminase level R74.01 Gastroesophageal reflux disease, unspecified whether esophagitis present K21.9 Esophagitis presence: esophagitis presence not specified Time Spent (min) 30 Comment 20 minutes spent with patient and additional 10 minutes spent reviewing her records
[2023-06-26 10:43] VITALS: BP 143/73; PULSE 78; BMI 38.1
== END 2023-06-26 11:12 | disposition home or self-care (01) ==
PROVIDERS: PCP Family Medicine; Visit Provider Nurse Practitioner Family
DX: R74.01 Elevation of levels of liver transaminase levels (principal); K21.9 Gastro-esophageal reflux disease without esophagitis
CPT/HCPCS: 99213

== ENCOUNTER 2023-07-06 10:34 | Outpatient (AMB) | payer OTHER, SELFPAY ==
[2023-07-06 10:38] VITALS: BP 130/78; PULSE 76; O2SAT 96; BMI 38.5
--- NOTE | 2023-07-06 10:38 | MHC.PC.OV ---
Vital Signs 07/06/23 10:38 Height 5 ft 3 in Weight 217 lb 2 oz BMI 38.5 BP 130/78 Blood Pressure Location Lt brachial Pulse 76 Pulse Source Pulse Oximeter Pulse Oximetry (%) 96 Oxygen Delivery Method Room Air Intake Visit Reasons: f/u diabetes and fibromyalgia Intake Note: Patient is here to follow up on diabetes, fibromyalgia, and sinus problems. Patient would like refill of Flonase. Allergies No Known Allergies Allergy (Mild, Verified 07/06/23 10:41) NONE Tobacco use date assessed: 07/06/23 HPI f/u diabetes and fibromyalgia HPI Details Patient?presents?for?follow-up?diabetes?and?fibromyalgia. A1c?has?climbed?from?7.9%?a?0.2%. Taking?medications?as?prescribed She?notes?that?she?has?not?been?consistent?with?a?diabetic?diet?and?eats?a?lot?of?carbs?and?sugars. Has?gained?a?couple?of?lb Patient?is?frustrated?with?herself. Afraid?to?try?insulin Achy?and?somewhat?fatigued. Tries?to?exercise?but?works?many?hours. Nasal?congestion.??She?is?out?of?Flonase [facility] Medical History Asthma Diabetes Diabetes type 2, uncontrolled Eroded bladder suspension mesh Fibromyalgia Heart palpitations Morbid obesity On beta karla at home Stress incontinence Varicose vein of leg Surgical History Hx of colonoscopy History of bladder surgery History of surgery Family History Father CAD (coronary artery disease) Myocardial infarction Hypercholesterolemia Diabetes mellitus HTN (hypertension) Mother Heart failure HTN (hypertension) Hypothyroidism Osteoporosis Social History Household Members: Spouse and Family Household Members Other:: daughter, mother Housing: House Alcohol intake: never Patient Tobacco Use Status: Never used Tobacco e-Cigarette/Vaping Use: Never Used Second Hand Smoke Exposure: No service: No Current occupational status: employed 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 Alo Sheth, Patricia Liz, Tae Campos and colleagues, with an educational lena from [employer]. Review of Systems Const Denies chills, Denies fatigue, Denies fever(s), Denies headache(s) and Denies weakness ENT Denies dizziness and Denies headache(s) Card Denies chest pain, Denies lightheadedness, Denies dyspnea and Denies other (Palpitations) Resp Denies cough, Denies dyspnea, Denies wheezing and Denies other ( shortness of breath) Musc Denies numbness and Denies tingling Neuro Denies dizziness, Denies headache(s), Denies numbness, Denies tingling, Denies paresthesias and Denies weakness Psych Denies anxiety and Denies depression Endo Denies fatigue Aller/Immun Denies wheezing Physical exam (Primary Care) Vital Signs: Last Vital Signs Pulse 76 07/06/23 10:38 BP 130/78 07/06/23 10:38 Pulse Ox 96 07/06/23 10:38 Oxygen Delivery Method Room Air 07/06/23 10:38 BMI result Body Mass Index 38.5 Tobacco/Smoking Status: Tobacco use Status Tobacco use date assessed 07/06/23 07/06/23 10:50 Patient Tobacco Use Status Never used Tobacco 07/06/23 10:50 e-Cigarette/Vaping Use Never Used 07/06/23 10:50 Thrive Assessment: Date of Thrive Assessment Date Thrive assessed 10/27/22 07/06/23 10:50 Const General: no acute distress and well developed Nutritional Appearance: well nourished Orientation/consciousness: patient oriented x3 HENMT Other: Some?nasal?congestion Head: Yes normocephalic and Yes atraumatic Eyes General: appearance normal, both eyes and all related structures Pupils: Equal, round and reactive pupils present EOM: EOMs intact bilaterally Resp Effort & Inspection: normal respiratory effort Auscultation: clear to auscultation bilaterally Cardio Rate: regular rate Rhythm: regular rhythm Heart sounds: S1 normal heart sound present, S2 normal heart sound present, no gallops, no murmurs and no rubs Neuro General: patient oriented x3 and gait normal Cranial nerves: Yes Equal, round and reactive pupils present Psych Affect: normal affect Results AMB Hemoglobin A1c AMB Hemoglobin A1c 8.2 % Last Edit by Janet Lawton CMA on 07/06/23 11:00 Results Reviewed Results Reviewed: Laboratory Last Values Hgb A1c (Clinic) 8.2 % (4.0-6.0) H 07/06/23 10:55 Assessment and Plan Assessment & Plan (1) Diabetes type 2, uncontrolled: Code(s): E11.65 - Type 2 diabetes mellitus with hyperglycemia Plan: A1c?has?climbed?from?7.9%?to?8.2%?despite?increasing?her?diabetes?medications Patient?feels?that?she?is?taking?medications?as?prescribed She?notes?that?she?is?however?eating?a?lot?of?carbs?and?sugars. We?discussed?using?a?basal?insulin?such?as?Lantus.??Patient?is?frustrated?and?becomes?mildly?tearful. She?would?like?to?try?increasing?Trulicity?once?more?before?considering?this. We?had?a?long?talk?about?insulin.??She?will?think?about?this.??Meantime?we?will?increase?her?Trulicity?again. Also?encouraged?a?diet?lower?in?sugars?and?starches?and?encouraged?exercise. (2) Fibromyalgia: Code(s): M79.7 - Fibromyalgia Plan: Continued?to?encouraged?exercise (3) Essential hypertension: Code(s): I10 - Essential (primary) hypertension Plan: Blood?pressure?is?controlled?today.??Goal?is?less?than?140/90 Continue?current?medication?regimen (4) Sinusitis: Code(s): J32.9 - Chronic sinusitis, unspecified Plan: Mild/moderate?congestion She?is?out?of?Flonase Refill?Flonase Orders: Orders AMB Hemoglobin A1c Today Z13.9 - Encounter for screening, unspecified Medications: Refilled fluticasone propionate 50 mcg/actuation (Flonase Allergy Relief) administer into each nostril 1 spray intranasal BID 90 days 48 grams 3RF Coding Level of Care Code Est Pt Level 4 (93041) Diagnoses Diabetes type 2, uncontrolled E11.65 Fibromyalgia M79.7 Essential hypertension I10 Sinusitis J32.9
== END 2023-07-06 11:36 | disposition home or self-care (01) ==
PROVIDERS: PCP Family Medicine; Visit Provider Family Medicine
DX: E11.65 Type 2 diabetes mellitus with hyperglycemia (principal); M79.7 Fibromyalgia; I10 Essential (primary) hypertension; J32.9 Chronic sinusitis, unspecified; Z23 Encounter for immunization
CPT/HCPCS: 83036; 90471; 90686; 99214

== ENCOUNTER 2023-09-09 10:32 | Emergency (ER) | payer OTHER, SELFPAY ==
--- NOTE | 2023-09-09 10:34 | ECG_ITS ---
Test Reason : CHEST PAIN Blood Pressure : / mmHG Vent. Rate : 080 BPM Atrial Rate : 080 BPM P-R Int : 178 ms QRS Dur : 086 ms QT Int : 368 ms P-R-T Axes : 013 008 022 degrees QTc Int : 424 ms Normal sinus rhythm Normal ECG When compared to the previous EKG of No significant changes seen Referred By: Generic ED Physician Electronically Signed By:Timbo Chi
[2023-09-09 10:54] VITALS: BP 145/87; PULSE 80; RESP 18; TEMP 36.3; O2SAT 94; BMI 36.8
[2023-09-09 10:57] LABS: MANUAL DIFF FLAG NO
[2023-09-09 10:58] LABS: Basophils Absolute Auto 0.1 X10*3/uL (0.0-0.2); Basophils Percent Auto 0.6 % (0-2); Eosinophils Absolute Auto 0.2 X10*3/uL (0.0-0.4); Eosinophils Percent Auto 2.1 % (0-4); Hematocrit 47.9 % (37.0-47.0); Hemoglobin 15.4 g/dl (12.0-16.0); Imm Gran Abs Auto 0.01 X10*3/uL (0.00-0.03); Imm Gran Pct Auto 0.1 % (0.0-0.4); Lymphocytes Absolute Auto 2.7 X10*3/uL (1.2-4.9); Lymphocytes Percent Auto 34.1 % (20-40); Mean Corpuscular HGB Conc 32.2 g/dl (31.0-35.0); Mean Corpuscular Hemoglobin 27.7 pg (27.0-33.0); Mean Corpuscular Volume 86.2 fL (80.0-98.0); Mean Platelet Volume 11.8 fL (9.4-12.3); Monocytes Absolute Auto 0.6 X10*3/uL (0.1-1.2); Monocytes Percent Auto 7.5 % (2-11); Neutrophils Absolute Auto 4.4 x10*3/uL (2.0-8.3); Neutrophils Percent Auto 55.6 % (45-73); Platelet Count 220 X10*3/uL (160-400); Red Blood Count 5.56 X10*6/uL (4.20-5.50); Red Cell Distribution Width 14.2 % (11.0-16.0)
[2023-09-09 11:11] LABS: Anion Gap 17 (12-20); Blood Urea Nitrogen 20 mg/dL (9-16); Calcium 10.3 mg/dL (8.4-10.2); Carbon Dioxide 25 mmol/L (22-29); Chloride 101 mmol/L (96-108); Creatinine Clr Calc Pharmacy 96.8; Estimated Glomerular Filt Rate > 60; Glucose Random 94 mg/dL (60-115); Potassium 3.9 mmol/L (3.3-5.1); Sodium 139 mmol/L (135-145)
[2023-09-09 11:32] LABS: Troponin-I High Sensitivity < 2.7 ng/L (<3.5-17.0)
[2023-09-09 11:54] VITALS: BP 143/81; PULSE 78; RESP 16; O2SAT 96
--- NOTE | 2023-09-09 11:58 | PC.NURSE ---
pt aox4. ambulatory. reports moderate left sided chest pain, radiating from center. Pain was mild and intermittent and going on for a couple of months but increased over the past several days. Describes it as discomfort and pressure EKG done in triage, as well as labs. NSR on tele monitor.
--- NOTE | 2023-09-09 12:15 | ED.CHESTPAIN ---
HPI - Chest Pain General Chief Complaint: Chest Pain Stated Complaint: Chest pain/discomfort Time Seen by Provider: 09/09/23 11:45 History of Present Illness HPI narrative: 52-year-old female with history of fibromyalgia, diabetes and hypertension, who comes in with 2 months of central chest discomfort and tightness that is not been associated with dizziness/headache/new cough/sore throat and she denies any GI or symptoms. Related Data Previous Rx's Medication Instructions Recorded cetirizine 10 mg capsule (Zyrtec) 10 mg PO DAILY #90 caps 08/20/20 budesonide-formoterol HFA 80 2 puff inhalation BID 1 month 11/06/20 mcg-4.5 mcg/actuation aerosol #10.2 grams inhaler (Symbicort) blood sugar diagnostic (FreeStyle #100 ea 05/07/21 Lite Strips) metoprolol tartrate 50 mg tablet 50 mg PO BID 90 days #180 tabs 10/27/22 valsartan 160 mg tablet 160 mg PO DAILY 90 days #90 tabs 12/04/22 empagliflozin 25 mg tablet 25 mg PO DAILY 90 days #90 tabs 03/23/23 (Jardiance) metformin 1,000 mg tablet 1,000 mg PO BID 90 days #180 tabs 05/13/23 montelukast 10 mg tablet 10 mg PO DAILY #90 tabs 06/02/23 pantoprazole 40 mg tablet,delayed 40 mg PO DAILY #90 tabs 06/26/23 release dulaglutide 4.5 mg/0.5 mL 4.5 mg (0.5 mL) subcut QWEEK 84 07/06/23 subcutaneous pen injector days #6 mL fluticasone propionate 50 1 spray intranasal BID 90 days #48 07/06/23 mcg/actuation nasal grams spray,suspension (Flonase Allergy Relief) atorvastatin 40 mg tablet 40 mg PO BEDTIME #30 tabs 07/08/23 hydrochlorothiazide 25 mg tablet 25 mg PO DAILY #30 tabs 08/12/23 famotidine 20 mg tablet 20 mg PO BEDTIME #90 tabs 09/01/23 Allergies Allergy/AdvReac Type Severity Reaction Status Date / Time No Known Allergies Allergy Mild NONE Verified 09/09/23 10:53 Review of Systems Review of Systems: Pertinent positives and negatives as stated in HPI PMFSH Past Medical History Source: nursing notes reviewed Medical History Asthma Diabetes Diabetes type 2, uncontrolled Eroded bladder suspension mesh Fibromyalgia Heart palpitations Morbid obesity On beta karla at home Stress incontinence Varicose vein of leg Surgical History Hx of colonoscopy History of bladder surgery History of surgery Family History Family History Father CAD (coronary artery disease) Myocardial infarction Hypercholesterolemia Diabetes mellitus HTN (hypertension) Mother Heart failure HTN (hypertension) Hypothyroidism Osteoporosis Social History Social History Household Members: Spouse and Family Household Members Other:: daughter, mother Housing: House Alcohol intake: never Patient Tobacco Use Status: Never used Tobacco Smoked in Last 30 Days: No e-Cigarette/Vaping Use: Never Used Second Hand Smoke Exposure: No Use of substances other than those prescribed or required for medical reasons: No Advance Directives: No Advance Directives Information Provided: Yes service: No Current occupational status: employed 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 GENERAL: Well developed, well nourished, in no acute distress. HEAD: Normocephalic/atraumatic EYES: PERRLA, EOMI EARS: Ext canals without abnormality NOSE: Nares patent bilateral OROPHARYNX: no oral lesions noted, posterior pharynx clear NECK: Supple, no adenopathy LUNGS: Normal breath sounds. No adventitious sounds or accessory muscle use. SpO2<96> CARDIOVASCULAR: Regular rate and rhythm without noted murmurs ABDOMEN: Soft, non-tender, non-distended with bowel sounds. MUSCULOSKELETAL: No tenderness, deformities, or effusions noted on gross inspection. EXTREMITIES: No cyanosis, clubbing or edema. SKIN: Inspection of the skin reveals no rashes NEUROLOGIC: Alert and oriented x 4. Strength and sensation to light touch were grossly intact x 4. Medical Decision Making Medical Decision Making [facility] Narrative: 52-year-old female with history and clinical presentation, DDX: Acid reflux, musculoskeletal pain, no clinical suspicion for pneumonia/pneumothorax/ACS. Reviewed all investigations and hematologic indices are grossly within normal limits without acute findings of leukocytosis/left shift/anemia or thrombocytopenia. Chemistry indices are gross within normal limits without evidence of CARLOS her electrolytes derangements. High sensitivity troponin is undetectable and there are no acute changes on EKG. Patient offered GI cocktail and Carafate solution and my interpretation is that she has GERD and was provided with additional recommendations for the use of Mylanta prior to meals but also given her underlying medical conditions of diabetes and high blood pressure I did encourage her to follow-up with her primary care doctor and pursue a stress test after she returns from her trip. Differential Diagnosis Differential Diagnoses: The differential diagnosis associated with the presentation includes Please see the discussion above Admission/Observation Consideration of admission/observation: Escalation of care including admission/observation considered Please see the discussion above Lab Data [facility] Lab Attestation statement: I reviewed the patient's lab results. Please see the discussion above 09/09/23 10:50 09/09/23 10:50 Labs: Lab Results 09/09/23 Range/Units 10:50 WBC 8.0 (4.8-10.8) X10*3/uL RBC 5.56 H (4.20-5.50) X10*6/uL Hgb 15.4 (12.0-16.0) g/dl Hct 47.9 H (37.0-47.0) % MCV 86.2 (80.0-98.0) fL MCH 27.7 (27.0-33.0) pg MCHC 32.2 (31.0-35.0) g/dl RDW 14.2 (11.0-16.0) % Plt Count 220 (160-400) X10*3/uL MPV 11.8 (9.4-12.3) fL Immature Gran % (Auto) 0.1 (0.0-0.4) % Neut % (Auto) 55.6 (45-73) % Lymph % (Auto) 34.1 (20-40) % [place] % (Auto) 7.5 (2-11) % Eos % (Auto) 2.1 (0-4) % Baso % (Auto) 0.6 (0-2) % Lymph # (Auto) 2.7 (1.2-4.9) X10*3/uL [place] # (Auto) 0.6 (0.1-1.2) X10*3/uL Eos # (Auto) 0.2 (0.0-0.4) X10*3/uL Baso # (Auto) 0.1 (0.0-0.2) X10*3/uL Abs Immat Gran (auto) 0.01 (0.00-0.03) X10*3/uL Absolute Neuts (auto) 4.4 (2.0-8.3) x10*3/uL Absolute Nucleated RBC 0.000 (0.0-0.012) X10*3/uL Nucleated RBC % (auto) 0.0 (0.0-0.2) /100WBC Sodium 139 (135-145) mmol/L Potassium 3.9 (3.3-5.1) mmol/L Chloride 101 (96-108) mmol/L Carbon Dioxide 25 (22-29) mmol/L Anion Gap 17 (12-20) BUN 20 H (9-16) mg/dL Creatinine 0.75 (0.5-1.4) mg/dL Estim Creat Clear Calc 96.8 Estimated GFR > 60 Random Glucose 94 (60-115) mg/dL Calcium 10.3 H D (8.4-10.2) mg/dL Troponin I High Sens < 2.7 (<3.5-17.0) ng/L Independent Interpretation I performed an independent interpretation of an: EKG Interpretation: Normal sinus rhythm, HR-80, no STEMI, CT/QRS/QTC is within normal limits. External Record Review External record reviewed: Outpatient record and Prior outpatient labs Chronic Conditions Patient?s care impacted by: Diabetes Discharge Plan Discharge Clinical Impression: GERD (gastroesophageal reflux disease) Patient Disposition: Home, Self-Care Instructions: Diet for Stomach Ulcers and Gastritis (ED), Gastroesophageal Reflux Disease (ED) Additional Instructions: 1. Resume all home medications as prescribed. 2. Recommend adding and Mylanta prior to your meals for additional help with acid reduction. 3. Recommend follow-up with your primary care doctor in the next 1-2 days to set up an appointment for re-evaluation discuss the possibility of obtaining a stress test although your cardiac testing today with EKG and lab work appears to be within normal limits. Return to the ER for any worsening symptoms. Prescriptions: No Action Zyrtec 10 mg capsule 10 mg PO DAILY Qty: 90 2RF budesonide-formoterol [Symbicort] 80-4.5 mcg/actuation HFA aerosol inhaler 2 puff inhalation BID 30 Days Qty: 10.2 2RF (DME) FreeStyle Lite Strips Strip See Rx Instructions .ROUTE .MEDSUPPLY Qty: 100 11RF Rx Instructions: 2x daily valsartan 160 mg tablet 160 mg PO DAILY 90 Days Qty: 90 3RF Jardiance 25 mg tablet 25 mg PO DAILY 90 Days Qty: 90 1RF metformin 1,000 mg tablet 1,000 mg PO BID 90 Days Qty: 180 1RF montelukast 10 mg tablet 10 mg PO DAILY Qty: 90 0RF atorvastatin 40 mg tablet 40 mg PO BEDTIME Qty: 30 2RF hydrochlorothiazide 25 mg tablet 25 mg PO DAILY Qty: 30 2RF famotidine 20 mg tablet 20 mg PO BEDTIME Qty: 90 3RF metoprolol tartrate 50 mg tablet 50 mg PO BID 90 Days Qty: 180 3RF fluticasone propionate [Flonase Allergy Relief] 50 mcg/actuation spray,suspension 1 spray intranasal BID 90 Days Qty: 48 3RF Rx Instructions: administer into each nostril dulaglutide 4.5 mg/0.5 mL pen injector 4.5 mg subcut QWEEK 84 Days Qty: 6 4RF pantoprazole 40 mg tablet,delayed release (DR/EC) 40 mg PO DAILY Qty: 90 1RF Rx Instructions: take one tablet half an hour before breakfast Referrals: Isreal Acuña MD [Primary Care Provider] -
[2023-09-09] MEDS: Lidocaine HCl Viscous 2 % 15 ML SOLUTION 10 ML MUCOUS MEM (12:25)
[2023-09-09] MEDS: Sucralfate Oral Suspension 1 GM/10 ML ORAL.SUSP PO (12:25)
[2023-09-09] MEDS: Magnesium Hydrox/Alum Hydrox 30 ML ORAL.SUSP PO (12:25)
== END 2023-09-09 12:38 | disposition home or self-care (01) ==
PROVIDERS: Emergency Provider Student in an Organized Health Care Education/Training Program; PCP Family Medicine
DX: K21.9 Gastro-esophageal reflux disease without esophagitis (principal); E11.9 Type 2 diabetes mellitus without complications; I10 Essential (primary) hypertension; E78.00 Pure hypercholesterolemia, unspecified; Z79.84 Long term (current) use of oral hypoglycemic drugs; Z79.899 Other long term (current) drug therapy; Z79.02 Long term (current) use of antithrombotics/antiplatelets
CPT/HCPCS: 36415; 80048; 84484; 85025; 93005; 99283; 99285

== ENCOUNTER → 2023-09-09 10:34 | Outpatient (BNV) | payer OTHER, SELFPAY | PROVIDERS: Emergency Provider Student in an Organized Health Care Education/Training Program; PCP Family Medicine; Visit Provider Internal Medicine Cardiovascular Disease | DX: R07.9 Chest pain, unspecified (principal) | CPT/HCPCS: 93010 ==

== ENCOUNTER 2023-11-12 08:32 | Outpatient (AMB) | payer OTHER, SELFPAY ==
[2023-11-12 08:33] VITALS: BP 136/83; PULSE 78; O2SAT 95; BMI 35.1
--- NOTE | 2023-11-12 08:33 | MHC.PC.OV ---
Vital Signs 11/12/23 08:33 Height 5 ft 3 in Weight 198 lb 2 oz BMI 35.1 BP 136/83 Blood Pressure Location Lt brachial Position Sitting Pulse 78 Pulse Source Pulse Oximeter Pulse Oximetry (%) 95 Oxygen Delivery Method Room Air Intake Visit Reasons: Follow-up diabetes and hypertension Intake Note: Pt presents to the office today for a follow up for diabetes and hypertension. Allergies No Known Allergies Allergy (Mild, Verified 11/12/23 08:36) NONE Tobacco use date assessed: 11/12/23 HPI Follow-up diabetes and hypertension HPI Details 53 y/o female presents to f/u diabetes and hypertension. Last A1c 07/06/23 was 8.2%. A1c today 11/12/23 is 7.1%. She is on Trulicity 4.5mg, Jardiance 25mg, metformin 1000mg b.i.d. She had lost about 10 lbs since last office visit in August. Blood pressure today 136/83. She is on metoprolol 50mg b.i.d., valsartan 160mg and hydrochlorothiazide 25mg daily. She reports she is not on any medications for fibromyalgia. Had trialed duloxetine before which she states had helped but she has missed it one day and made her feel significantly unwell. [facility] Medical History On beta karla at home Fibromyalgia Stress incontinence Morbid obesity Diabetes type 2, uncontrolled Heart palpitations Diabetes Varicose vein of leg Eroded bladder suspension mesh Asthma Surgical History Hx of colonoscopy History of bladder surgery History of surgery Family History Father CAD (coronary artery disease) Myocardial infarction Hypercholesterolemia Diabetes mellitus HTN (hypertension) Mother Heart failure HTN (hypertension) Hypothyroidism Osteoporosis Social History Household Members: Spouse and Family Household Members Other:: daughter, mother Housing: House Alcohol intake: never Patient Tobacco Use Status: Never used Tobacco e-Cigarette/Vaping Use: Never Used Second Hand Smoke Exposure: No service: No Current occupational status: employed 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 Alo Sheth, Patricia Liz, Tae Campos and colleagues, with an educational lena from [employer]. Physical exam (Primary Care) Vital Signs: Last Vital Signs Pulse 78 11/12/23 08:33 BP 136/83 11/12/23 08:33 Pulse Ox 95 11/12/23 08:33 Oxygen Delivery Method Room Air 11/12/23 08:33 BMI result Body Mass Index 35.1 Tobacco/Smoking Status: Tobacco use Status Tobacco use date assessed 11/12/23 11/12/23 08:37 Patient Tobacco Use Status Never used Tobacco 11/12/23 08:37 e-Cigarette/Vaping Use Never Used 11/12/23 08:37 Thrive Assessment: Date of Thrive Assessment Date Thrive assessed 10/27/22 11/12/23 08:37 Results AMB Hemoglobin A1c AMB Hemoglobin A1c 7.1 % Last Edit by Melanie Carter MA on 11/12/23 08:51 Results Reviewed Results Reviewed: Laboratory Last Values Hgb A1c (Clinic) 7.1 % (4.0-6.0) H 11/12/23 08:49 Assessment and Plan Assessment & Plan (1) Diabetes: Code(s): E11.9 - Type 2 diabetes mellitus without complications Plan: A1c?much?improved?from?8.2%?to?7.1%.??Goal?is?less?than?7.0% She?has?been?losing?weight?- about?20?lb?since?last?visit Encouraged?ongoing?weight?loss Continue?current?medication Encouraged?exercise (2) Essential hypertension: Code(s): I10 - Essential (primary) hypertension Plan: Blood?pressure?is?controlled.??Goal?is?less?than?140/90 Continue?current?medications (3) Fibromyalgia: Code(s): M79.7 - Fibromyalgia Plan: Fibromyalgia?and?she?notes?that?this?is?a?barrier?to?getting?more?exercise. However,?I?recommended?that?she?work?on?this?because?it?is?also?the?number one?Treatment?for?her?condition. Will?also?try?duloxetine?again.??She?had?some?difficulties?with?this?when?she?missed?some?doses?and?had?adverse?effects?from?this. Encouraged?regularity?with?her?medication. Orders: Orders AMB Hemoglobin A1c Today E11.65 - Type 2 diabetes mellitus with hyperglycemia Comprehensive [place]. Panel Fast Today Z00.00 - Encounter for general adult medical examination without abnormal findings Microalbumin, Random (w Creat) Today I10 - Essential (primary) hypertension Lipid Panel Today Z00.00 - Encounter for general adult medical examination without abnormal findings UA and rflx microscopic Today Z00.00 - Encounter for general adult medical examination without abnormal findings TSH reflex Free T4 Today Z00.00 - Encounter for general adult medical examination without abnormal findings Medications: New duloxetine 20 mg PO BID 90 days 180 caps 2RF Refilled valsartan 160 mg PO DAILY 90 days 90 tabs 3RF M79.7 - Fibromyalgia valsartan 160 mg PO DAILY 90 days 90 tabs 3RF M79.7 - Fibromyalgia atorvastatin 40 mg PO BEDTIME 30 tabs 2RF atorvastatin 40 mg PO BEDTIME 30 tabs 2RF Coding Level of Care Code Est Pt Level 4 (61284) Diagnoses Diabetes E11.9 Essential hypertension I10 Fibromyalgia M79.7
== END 2023-11-12 09:57 | disposition home or self-care (01) ==
PROVIDERS: PCP Family Medicine; Visit Provider Family Medicine
DX: E11.9 Type 2 diabetes mellitus without complications (principal); I10 Essential (primary) hypertension; M79.7 Fibromyalgia; E11.65 Type 2 diabetes mellitus with hyperglycemia
CPT/HCPCS: 83036; 99214